=== PATIENT | female | born 1960 | race Caucasian/White ===

== ENCOUNTER 2018-11-15 00:44 | Emergency (ER) | payer OTHER ==
[~2018-11-15] VITALS: Ht 167.6 cm; Wt 62.0 kg
[2018-11-15] MEDS ORDERED: BLOOD PRESSURE PILL (00:54)
[2018-11-15] MEDS ORDERED: CHOLESTEROL PILL (00:54)
[2018-11-15 03:30] VITALS: BP 112/87
== END 2018-11-15 03:31 | disposition home or self-care (01) ==
LOC: M.ERS 00:44
DX: S01.81XA Laceration without foreign body of other part of head, initial encounter (principal); W01.0XXA Fall on same level from slipping, tripping and stumbling without subsequent striking against object, initial encounter; Y93.E1 Activity, personal bathing and showering; Y92.091 Bathroom in other non-institutional residence as the place of occurrence of the external cause; Y99.8 Other external cause status